=== PATIENT | female | born 1945 | race Caucasian/White ===

== ENCOUNTER 2025-04-24 08:21 | Inpatient (IN) | payer OTHER ==
[2025-04-24] VITALS (12 sets, daily range): BP systolic 140–141; BP diastolic 51–62; PULSE 66–151; RESP 18–28; TEMP 100.3–100.7; O2SAT 98–100
[~2025-04-24] VITALS: Ht 160 cm; Wt 68.3 kg
[2025-04-24] MEDS ORDERED: 0.9% SODIUM CHLORIDE 10 ML SYRINGE IVP PRN (08:30)
[2025-04-24] MEDS ORDERED: ALBUTEROL SULFATE 2.5 MG/0.5 ML NEB SOLUTION NEB ONE (08:45)
[2025-04-24] MEDS ORDERED: IPRATROPIUM BROMIDE 0.5 MG/2.5 ML NEB SOLUTION NEB ONE (08:45)
[2025-04-24] MEDS ORDERED: NOREPINEPHRINE 8 MG/0.9 % NACL 250 ML IV PRN (08:45)
[2025-04-24 08:53] LABS: COVID AG,FIA SOURCE NASAL SWAB
[2025-04-24 08:57] LABS: PLATELET COUNT (AUTO) 453 K/uL (150-450); RED BLOOD CELL COUNT(AUTO) 3.27 MIL/uL (4.00-5.20); RED CELL DISTRIBUTION WIDTH 20.5 % (11.5-14.5); WHITE BLOOD COUNT (AUTO) 13.8 K/uL (4.5-11.0)
[2025-04-24 09:04] LABS: ABG BASE EXCESS -11.2 mmol/L (-2.0-3.0); ABG CARBOXYHEMOGLOBIN 0.3 % (0.5-1.5); ABG HCO3 16.4 mmol/L (21.0-28.0); ABG METHEMOGLOBIN 1.1 % (0.0-1.5); ABG OXYGEN CONTENT 13.7 mL/dL (15.0-23.0); ABG OXYGEN SATURATION 99.7 % (94.0-98.0); ABG OXYHEMOGLOBIN 98.3 % (94.0-98.0); ABG PCO2 32 mmHg (32.0-45.0); ABG PH 7.292 (7.350-7.450); ABG TOTAL HEMOGLOBIN 8.9 G/dL (12.0-16.0); ALLEN TEST, BLOOD GAS Positive; FRACTIONATED INSPIRED OXYGEN 100.0 % (21-100.0); PO2, ARTERIAL BG 511.7 mmHg (83.0-108.0); SITE, BLOOD GAS RT RADIAL; SOURCE, BLOOD GAS ARTERIAL; TEMPERATURE, FAHRENHEIT, BG 104.0 FAHREN (96.0-98.6)
[2025-04-24 09:05] LABS: ABG A-A DIFF O2 160.6 mmHg (10-20.0); O2 DEVICE,BLOOD GAS VENTILATOR (ROOM AIR); PATIENT RATE, BG 18.0 min.; PEEP,BG 5 cm H2O; SET RATE, BG 18.0 min.; SPONTANEOUS VT, BG 423 ml; VT, ABG 420 ml
[2025-04-24] MEDS: SODIUM CHLORIDE 0.9% 1,000 ML IV ONE ×2 (09:07→09:57)
[2025-04-24] MEDS: PIPERACILLIN/TAZO 3.375 GM/D5W 50 ML IV ONE (09:10)
[2025-04-24] MEDS: ACETAMINOPHEN 1000 MG/ISO-OSM 100 ML IV ONE (09:10)
[2025-04-24 09:33] LABS: INFLUENZA TYPE A NEGATIVE FOR TYPE A (NEGATIVE); INFLUENZA TYPE B NEGATIVE FOR TYPE B (NEGATIVE)
[2025-04-24] MEDS: VANCOMYCIN 1.25 GM/WATER(PEG) 250 ML IV ONE (09:38)
[2025-04-24 09:39] LABS: SARS-COV2 (COVID) ANTIGEN,FIA Positive (Negative)
[2025-04-24] MEDS: PROPOFOL 1000 MG/ISO-OSM 100 ML IV PRN (09:39)
[2025-04-24 09:53] LABS: CALCIUM, TOTAL 9.3 mg/dL (8.8-10.5); CREATININE 1.68 mg/dL (0.60-1.30); GLOMERULAR FILTR. RATE CALC 29 mL/min (>60); GLUCOSE,RANDOM 246 mg/dL (70-110); SODIUM SERUM 134 mmol/L (136-145); UREA NITROGEN, BLOOD 13 mg/dL (7-18)
[2025-04-24 09:55] LABS: ASPARTATE AMINOTRANSFERASE 22 U/L (15-37); CREATINE KINASE, TOTAL ONLY 112 U/L (26-192); TOTAL PROTEIN, SERUM 6.8 g/dL (6.4-8.2)
[2025-04-24 09:58] LABS: LACTIC ACID 9.0 mmol/L (0.4-2.0)
[2025-04-24 10:08] LABS: TROPONIN I-HIGH SENSITIVITY 332 ng/L (<51)
[2025-04-24] MEDS ORDERED: MAGNESIUM HYDROXIDE SUSPENSION 30 ML UDCUP PO PRN (10:15)
[2025-04-24] MEDS ORDERED: MORPHINE SULFATE 4 MG/ML VIAL IVP PRN (10:15)
[2025-04-24] MEDS ORDERED: HYDROCODONE/ACETAMINOPHEN 5-325 MG TABLET PO PRN (10:15)
[2025-04-24] MEDS ORDERED: ONDANSETRON HCL 4 MG/2 ML VIAL IVP PRN (10:15)
[2025-04-24] MEDS ORDERED: IPRATROPIUM BROMIDE 0.5 MG/2.5 ML NEB SOLUTION NEB PRN (10:15)
[2025-04-24] MEDS ORDERED: BISACODYL 10 MG RECTAL RECTAL SUPPOSITORY PR PRN (10:15)
[2025-04-24] MEDS ORDERED: ZOLPIDEM TARTRATE 5 MG TABLET PO PRN (10:15)
[2025-04-24] MEDS ORDERED: ALBUTEROL SULFATE 2.5 MG/0.5 ML NEB SOLUTION NEB PRN (10:15)
[2025-04-24] MEDS: DIGOXIN 250 MCG/ML 2 ML AMP IVP ONE ×2 (10:38→12:23)
[2025-04-24] MEDS ORDERED: PHENYLEPHRINE HCL IN 0.9% NACL 400 MCG/10 ML SYRINGE IVP ONE (10:49)
[2025-04-24] MEDS ORDERED: PHENYLEPHRINE HCL 400 MG in DEXTROSE 5%-WATER 210 ML IV PRN (11:00)
[2025-04-24 11:06] LABS: APPEARANCE,URINE CLEAR (CLEAR); GLUCOSE, URINE (UA) NEGATIVE (NEGATIVE); LEUKOCYTE ESTERASE ,URINE SMALL (NEGATIVE); NITRATE,URINE NEGATIVE (NEGATIVE); OCCULT BLOOD,URINE NEGATIVE (NEGATIVE); SPECIFIC GRAVITIY, URINE 1.015 (1.003-1.030)
[2025-04-24] MEDS: PHENYLEPHRINE 200 MG/D5%-WATER 250 ML IV PRN (11:06)
[2025-04-24] MEDS: AMIODARONE HCL 150 MG in DEXTROSE 5%-WATER 97 ML IV ONE (11:18)
[2025-04-24] MEDS: AZITHROMYCIN 500 MG/NS 250 ML IV ONE (11:36)
[2025-04-24] MEDS: AMIODARONE HCL 360 MG in DEXTROSE 5%-WATER 242.8 ML IV ONE (11:37)
[2025-04-24 12:04] LABS: TROPONIN I-HIGH SENSITIVITY 723 ng/L (<51)
[2025-04-24] MEDS ORDERED: SODIUM CHLORIDE 0.9% 500 ML IV ONE (13:55)
[2025-04-24] MEDS: ALBUTEROL SULFATE 2.5 MG/0.5 ML NEB SOLUTION NEB SCH (14:00)
[2025-04-24] MEDS ORDERED: CefTRIAXone 1 GM/DEXTROSE 50 ML IV SCH (14:00)
[2025-04-24] MEDS: IPRATROPIUM BROMIDE 0.5 MG/2.5 ML NEB SOLUTION NEB SCH (14:00)
[2025-04-24] MEDS ORDERED: SODIUM CHLORIDE 0.9% 250 ML IV ONE ×3 (16:10→16:20)
[2025-04-24] MEDS: DEXAMETHASONE SOD PHOS 4 MG/ML VIAL IVP SCH (16:13)
[2025-04-24] MEDS: TOCILIZUMAB 400 MG in SODIUM CHLORIDE 0.9% 80 ML IV ONE (16:13)
[2025-04-24] MEDS: REMDESIVIR 200 MG in SODIUM CHLORIDE 0.9% 250 ML IV ONE (16:14)
[2025-04-24] MEDS: ROCURONIUM BROMIDE 10 MG/ML 5 ML VIAL IVP ONE (16:16)
[2025-04-24] MEDS: CefTRIAXone 1 GM/DEXTROSE 50 ML IV SCH (16:17)
[2025-04-24] MEDS: BENZONATATE 100 MG CAPSULE PO SCH (16:21)
[2025-04-24] MEDS: HEPARIN SODIUM,PORCINE 5,000 UNITS/ML VIAL SQ SCH (16:22)
[2025-04-24] MEDS: AMIODARONE HCL 540 MG in DEXTROSE 5%-WATER 250 ML IV ONE (17:09)
[2025-04-24] MEDS ORDERED: FentaNYL CIT 1000MCG/0.9% NACL 100 ML IV PRN (20:30)
[2025-04-24] MEDS ORDERED: DEXTROSE 50%-WATER 25 GM/50 ML SYRINGE IVP PRN (20:45)
[2025-04-24 21:16] LABS: GLUCOMETER DEV NAME(LOC) ICU.S7; GLUCOSE,POINT OF CARE 250 MG/DL (70-110)
[2025-04-24] MEDS: ACETAMINOPHEN 325 MG TABLET PO PRN (21:23)
[2025-04-24] MEDS: GuaiFENesin SR 600 MG ER TABLET PO SCH (21:23)
[2025-04-24] MEDS: FentaNYL CIT 1000MCG/0.9% NACL 100 ML IV PRN (21:24)
[2025-04-24] MEDS: DOCUSATE SODIUM 100 MG CAPSULE PO SCH (21:26)
[2025-04-24] MEDS: INSULIN LISPRO 100 UNITS/ML SQ PRN (22:44)
[2025-04-25] VITALS (19 sets, daily range): BP systolic 94–154; BP diastolic 47–65; PULSE 60–87; RESP 18–25; TEMP 97.1–99; O2SAT 100
[2025-04-25] MEDS ORDERED: PROPOFOL 1000 MG/ISO-OSM 100 ML IV PRN (01:45)
[2025-04-25] MEDS: PROPOFOL 1000 MG/ISO-OSM 100 ML IV PRN (01:55)
[2025-04-25 06:15] LABS: PLATELET COUNT (AUTO) 372 K/uL (150-450); RED BLOOD CELL COUNT(AUTO) 2.85 MIL/uL (4.00-5.20); RED CELL DISTRIBUTION WIDTH 20.8 % (11.5-14.5); WHITE BLOOD COUNT (AUTO) 11.1 K/uL (4.5-11.0)
[2025-04-25 06:20] LABS: GLUCOMETER DEV NAME(LOC) ICU.S7; GLUCOSE,POINT OF CARE 226 MG/DL (70-110)
[2025-04-25 06:20] LABS: ASPARTATE AMINOTRANSFERASE 108.0 U/L (15-37); CALCIUM, TOTAL 8.0 mg/dL (8.8-10.5); CREATININE 0.91 mg/dL (0.60-1.30); GLOMERULAR FILTR. RATE CALC 60.0 mL/min (>60); GLUCOSE,RANDOM 236.0 mg/dL (70-110); SODIUM SERUM 135.0 mmol/L (136-145); TOTAL PROTEIN, SERUM 6.0 g/dL (6.4-8.2); UREA NITROGEN, BLOOD 15.0 mg/dL (7-18)
[2025-04-25 06:24] LABS: TROPONIN I-HIGH SENSITIVITY 794 ng/L (<51)
[2025-04-25] MEDS: PANTOPRAZOLE SODIUM 40 MG DR TABLET PO SCH (08:20)
[2025-04-25] MEDS: AMIODARONE HCL 750 MG in DEXTROSE 5%-WATER 485 ML IV SCH (11:25)
[2025-04-25 12:45] LABS: GLUCOMETER DEV NAME(LOC) ICU.S7; GLUCOSE,POINT OF CARE 202 MG/DL (70-110)
[2025-04-25] MEDS ORDERED: POTASSIUM CHLORIDE 20 MEQ ER TABLET PO PRN (12:45)
[2025-04-25] MEDS: DOXYCYCLINE HYCLATE 100 MG in DEXTROSE 5%-WATER 100 ML IV SCH (12:51)
[2025-04-25] MEDS: POTASSIUM CHL 10 MEQ/WATER 50 ML IV PRN (12:52)
[2025-04-25] MEDS ORDERED: AZITHROMYCIN 500 MG/NS 250 ML IV SCH (13:00)
[2025-04-25] MEDS: REMDESIVIR 100 MG in SODIUM CHLORIDE 0.9% 250 ML IV SCH (14:14)
[2025-04-25] MEDS ORDERED: SODIUM CHLORIDE 0.9% 250 ML IV ONE (15:49)
[2025-04-25 18:40] LABS: GLUCOMETER DEV NAME(LOC) ICU.S7; GLUCOSE,POINT OF CARE 268 MG/DL (70-110)
[2025-04-25] MEDS: CARBIDOPA/LEVODOPA 25-100 MG TABLET GT SCH (21:25)
[2025-04-25] MEDS: DOCUSATE SODIUM 100 MG/10 ML LIQUID UDCUP PO SCH (21:32)
[2025-04-26] VITALS (13 sets, daily range): BP systolic 98–142; BP diastolic 46–58; PULSE 57–96; RESP 18–20; TEMP 96.2–99.5; O2SAT 97–100
[2025-04-26 01:21] LABS: GLUCOMETER DEV NAME(LOC) ICU.S7; GLUCOSE,POINT OF CARE 273 MG/DL (70-110)
[2025-04-26] MEDS: PHENYLEPHRINE 200 MG/D5%-WATER 250 ML IV PRN (04:09)
[2025-04-26 05:21] LABS: GLUCOMETER DEV NAME(LOC) ICU.S7; GLUCOSE,POINT OF CARE 169 MG/DL (70-110)
[2025-04-26 05:53] LABS: PLATELET COUNT (AUTO) 409 K/uL (150-450); RED BLOOD CELL COUNT(AUTO) 3.01 MIL/uL (4.00-5.20); RED CELL DISTRIBUTION WIDTH 21.0 % (11.5-14.5); WHITE BLOOD COUNT (AUTO) 17.5 K/uL (4.5-11.0)
[2025-04-26 06:02] LABS: ASPARTATE AMINOTRANSFERASE 123 U/L (15-37); CALCIUM, TOTAL 8.0 mg/dL (8.8-10.5); CREATININE 0.74 mg/dL (0.60-1.30); GLOMERULAR FILTR. RATE CALC > 60 mL/min (>60); GLUCOSE,RANDOM 280 mg/dL (70-110); SODIUM SERUM 133 mmol/L (136-145); TOTAL PROTEIN, SERUM 5.5 g/dL (6.4-8.2); UREA NITROGEN, BLOOD 16 mg/dL (7-18)
[2025-04-26] MEDS ORDERED: SODIUM CHLORIDE 0.9% 250 ML IV ONE (09:26)
[2025-04-26 12:07] LABS: ABG A-A DIFF O2 56.2 mmHg (10-20.0); ABG BASE EXCESS -8.6 mmol/L (-2.0-3.0); ABG CARBOXYHEMOGLOBIN 0.7 % (0.5-1.5); ABG HCO3 18.1 mmol/L (21.0-28.0); ABG METHEMOGLOBIN 0.9 % (0.0-1.5); ABG OXYGEN CONTENT 11.8 mL/dL (15.0-23.0); ABG OXYGEN SATURATION 99.4 % (94.0-98.0); ABG OXYHEMOGLOBIN 97.8 % (94.0-98.0); ABG PCO2 32 mmHg (32.0-45.0); ABG PH 7.348 (7.350-7.450); ABG TOTAL HEMOGLOBIN 8.4 G/dL (12.0-16.0); FRACTIONATED INSPIRED OXYGEN 30.0 % (21-100.0); O2 DEVICE,BLOOD GAS VENTILATOR (ROOM AIR); PO2, ARTERIAL BG 120.5 mmHg (83.0-108.0); SITE, BLOOD GAS ARTERIAL LINE; SOURCE, BLOOD GAS ARTERIAL; TEMPERATURE, FAHRENHEIT, BG 98.1 FAHREN (96.0-98.6); VENT MODE, BG CPAP (ROOM AIR)
[2025-04-26 12:08] LABS: CPAP, BG 5 cm H2O; PATIENT RATE, BG 18.0 min.; PRESSURE SUPPORT, BG 8 cm H2O; SPONTANEOUS VT, BG 469 ml
[2025-04-26] MEDS: APIXABAN 2.5 MG TABLET PO SCH (12:30)
[2025-04-26] MEDS: PIPERACILLIN/TAZO 3.375 GM/D5W 50 ML IV SCH (17:08)
[2025-04-26 17:26] LABS: TROPONIN I-HIGH SENSITIVITY 285 ng/L (<51)
[2025-04-26 17:30] LABS: GLUCOMETER DEV NAME(LOC) ICUN.6; GLUCOSE,POINT OF CARE 237 MG/DL (70-110)
[2025-04-26 17:33] LABS: ABG BASE EXCESS -9.4 mmol/L (-2.0-3.0); ABG CARBOXYHEMOGLOBIN 0.8 % (0.5-1.5); ABG HCO3 17.7 mmol/L (21.0-28.0); ABG METHEMOGLOBIN 0.3 % (0.0-1.5); ABG OXYGEN CONTENT 12.2 mL/dL (15.0-23.0); ABG OXYGEN SATURATION 96.4 % (94.0-98.0); ABG OXYHEMOGLOBIN 95.3 % (94.0-98.0); ABG PCO2 26 mmHg (32.0-45.0); ABG PH 7.395 (7.350-7.450); ABG TOTAL HEMOGLOBIN 9.0 G/dL (12.0-16.0); FRACTIONATED INSPIRED OXYGEN 21.0 % (21-100.0); PO2, ARTERIAL BG 82.9 mmHg (83.0-108.0); SITE, BLOOD GAS ARTERIAL LINE; SOURCE, BLOOD GAS ARTERIAL; TEMPERATURE, FAHRENHEIT, BG 100.1 FAHREN (96.0-98.6)
[2025-04-26 17:34] LABS: ABG A-A DIFF O2 35.7 mmHg (10-20.0); O2 DEVICE,BLOOD GAS ROOM AIR (ROOM AIR)
[2025-04-26 18:20] LABS: GLUCOMETER DEV NAME(LOC) ICU.S7; GLUCOSE,POINT OF CARE 271 MG/DL (70-110)
== END 2025-04-26 21:35 | disposition short-term general hospital (02) | DRG 871 ==
LOC: EMS 08:23 → EDH 09:56 → ICU 13:40
PROVIDERS: ADMIT Internal Medicine; ATTEND Internal Medicine
PROC: 04HY32Z Insertion of Monitoring Device into Lower Artery, Percutaneous Approach (ICD-10-PCS; principal; 2025-04-24)
PROC: 0BH17EZ Insertion of Endotracheal Airway into Trachea, Via Natural or Artificial Opening (ICD-10-PCS; 2025-04-24)
PROC: 5A1945Z Respiratory Ventilation, 24-96 Consecutive Hours (ICD-10-PCS; 2025-04-24)
PROC: 06HY33Z Insertion of Infusion Device into Lower Vein, Percutaneous Approach (ICD-10-PCS; 2025-04-24)
PROC: XW033E5 Introduction of Remdesivir Anti-infective into Peripheral Vein, Percutaneous Approach, New Technology Group 5 (ICD-10-PCS; 2025-04-24)
DX: A41.9 Sepsis, unspecified organism (principal); J12.82 Pneumonia due to coronavirus disease 2019; J96.01 Acute respiratory failure with hypoxia; U07.1 COVID-19; N17.9 Acute kidney failure, unspecified; N39.0 Urinary tract infection, site not specified; J98.11 Atelectasis; Z16.12 Extended spectrum beta lactamase (ESBL) resistance; E11.22 Type 2 diabetes mellitus with diabetic chronic kidney disease; I12.9 Hypertensive chronic kidney disease with stage 1 through stage 4 chronic kidney disease, or unspecified chronic kidney disease; D64.9 Anemia, unspecified; N18.9 Chronic kidney disease, unspecified; E87.5 Hyperkalemia; I48.0 Paroxysmal atrial fibrillation; G20.A1 Parkinson's disease without dyskinesia, without mention of fluctuations; K44.9 Diaphragmatic hernia without obstruction or gangrene; K76.89 Other specified diseases of liver; Z87.440 Personal history of urinary (tract) infections
CPT/HCPCS: 31500; 71045; 71250; 80048; 80053; 80076; 81001; 82550; 82805; 82962; 83605; 83735; 83880; 84100; 84132; 84145; 84484; 85025; 85610; 87040; 87077; 87081; 87086; 87185; 87186; 87804; 93005; 93306; 94002; 94003; 94640; 96361; 96365; 96366; 96367; 96368; 96375; 96376; 99291; J0131; J0282; J0456; J0696; J1100; J1160; J1644; J2370; J2543; J2704; J2919; J3010; J3480; J3490; J7040; J7050; J7060; J8540; 36415-L1; 36415-TC; J7613